=== PATIENT | male | born 1995 | race Two or more races ===

== ENCOUNTER 2025-07-01 11:59 | Emergency (ER) | payer MEDICAID, SELFPAY ==
[2025-07-01 12:23] VITALS: BP 170/105; PULSE 89; RESP 18; TEMP 36.7; O2SAT 98
[2025-07-01 12:25] VITALS: BMI 26.9
--- NOTE | 2025-07-01 12:25 | EKG_ITS ---
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
--- NOTE | 2025-07-01 12:26 | PD.EDRME ---
Rapid Medical Screening Exam E Arrival date/time: 07/01/25 11:59 30-year-old male with a history of pancreatitis, alcoholism presents to the emergency room with a chief complaint of numbness to his bilateral lower extremities and hands x 1 month. Patient states he was drinking heavily last night. I have greeted and performed a focused initial assessment of this patient. A comprehensive ED assessment and evaluation of the patient, analysis of all test results, and completion of the medical decision making process will be conducted by additional ED providers. Chief Complaint: Anxiety Time Seen by Provider: 07/01/25 12:10 Vital signs: Vital Signs Temperature 98.0 F 07/01/25 12:23 Pulse Rate 89 07/01/25 12:23 Respiratory Rate 18 07/01/25 12:23 Blood Pressure 170/105 H 07/01/25 12:23 Pulse Oximetry (%) 98 07/01/25 12:23 Oxygen Delivery Method Room Air 07/01/25 12:23 Vital signs reviewed by provider: Yes
[2025-07-01 13:07] LABS: Basophils # (Auto) 0.1 Thou/mm3 (0.0-0.2); Basophils % (Auto) 1 % (0-2.5); Eosinophils # (Auto) 0.1 Thou/mm3 (0.0-0.5); Eosinophils % (Auto) 2 % (0-10); Hematocrit 48.2 % (41.0-53.0); Hemoglobin 16.9 g/dL (13.5-16.0); Immature Granulocytes Auto 0.03 Thou/mm3 (0.00-0.00); Lymphocytes # (Auto) 2.9 Thou/mm3 (1.0-4.8); Lymphocytes % (Auto) 35 % (10-50); Mean Corpuscular HGB Conc 35.1 g/dl (31.0-37.0); Mean Corpuscular Hemoglobin 30.5 pg (25.0-35.0); Mean Corpuscular Volume 87 fL (80-100); Monocytes # (Auto) 0.4 Thou/mm3 (0.0-0.8); Monocytes % (Auto) 5 % (0-12); Neutrophils # (Auto) 4.7 Thou/mm3 (1.8-7.7); Neutrophils % (Auto) 57 % (37-80); Nucleated Red Blood Cell # 0.00 Thou/mm3 (0.00-0.00); Nucleated Red Blood Cell % 0 /100 WBC (0); Platelet Count 410 Thou/mm3 (140-440); RDW Standard Deviation 40.9 fL (35.1-43.9); Red Blood Count 5.55 Miln/mm3 (4.50-5.90); White Blood Count 8.3 Thou/mm3 (3.8-10.6)
[2025-07-01 13:10] LABS: Collection Type, Urine Clean Catch
[2025-07-01 13:16] LABS: Bilirubin,Urine Negative (Negative); Blood,Urine Negative (Negative); Clarity,Urine Clear (Clear/Hazy); Color,Urine Lt-Yellow (Lt Yel-Yel); Glucose, Urine Negative (Negative); Ketones,Urine Trace (Negative); Leukocyte Esterase,Urine Negative (Negative); Nitrite,Urine Negative (Negative); PH,Urine 6.0 (5.0-7.0); Protein,Urine Negative (Neg - Trace); RBC,Urine < 1 /hpf (0-3); Specific Gravity,Urine 1.017 (1.001-1.035); Squamous Epithelial Cell,Urine < 1 /hpf (0-5); Urobilinogen,Urine Negative mg/dL (0.0-1.0); WBC,Urine 1 /hpf (0-5)
[2025-07-01 13:25] LABS: Amphetamine/Methamp Scrn,U Negative (Negative); Barbiturate Screen,Urine Negative (Negative); Benzodiazepines Screen,Urine Negative (Negative); Benzoylecgonine Screen, Ur Negative (Negative); Fentanyl Screen,Urine Negative (Negative); Opiate Screen,Urine Negative (Negative); THC Screen,Urine Positive (Negative)
[2025-07-01 13:25] LABS: B-Type Natriuretic Peptide < 20 pg/mL (0-100)
[2025-07-01 13:27] LABS: Alanine Aminotransferase 87 U/L (10-49); Albumin, Serum 5.2 gm/dL (3.5-5.0); Albumin/Globulin Ratio 1.9 (1.2-2.2); Alcohol, Blood Medical 75.0 mg/dL (0-10.0); Alkaline Phosphatase 122 U/L (46-116); Anion Gap 13 (7-16); Aspartate Amino Transferase 63 U/L (0-34); BUN/Creatinine Ratio 5 Ratio (12-20); Bilirubin,Total 0.5 mg/dL (0.3-1.2); Blood Urea Nitrogen 6 mg/dL (9-23); Calcium 9.7 mg/dL (8.3-10.6); Calcium (Corrected) 9.7 mg/dL (8.5-10.1); Carbon Dioxide 25.7 mMol/L (20.0-31.0); Chloride 103 mMol/L (98-107); Creatinine (Component) 1.1 mg/dL (0.6-1.3); Estimated Creatinine Clearance 112.1 mL/min (>60); Globulin 2.8 gm/dL (2.3-3.5); Glucose 108 mg/dL (74-106); Lipase 29 U/L (12-53); Magnesium 1.8 mg/dL (1.6-2.6); Osmolality,Calculated 281 (275-295); Potassium 4.2 mMol/L (3.4-5.1); Sodium 142 mMol/L (136-145); Total Protein 8.0 gm/dL (5.7-8.2); Troponin I < 0.020 ng/mL (0.0-0.045); eGFR > 60 See Note
--- NOTE | 2025-07-01 15:07 | PD.EDRME ---
Rapid Medical Screening Exam RME Arrival date/time: 07/01/25 11:59 07/01/25 11:59 30-year-old male with a history of pancreatitis, alcoholism presents to the emergency room with a chief complaint of numbness to his bilateral lower extremities and hands x 1 month. Patient states he was drinking heavily last night. I have greeted and performed a focused initial assessment of this patient. A comprehensive ED assessment and evaluation of the patient, analysis of all test results, and completion of the medical decision making process will be conducted by additional ED providers. Chief Complaint: Anxiety Time Seen by Provider: 07/01/25 12:10 Vital signs: Vital Signs Temperature 98.0 F 07/01/25 12:23 Pulse Rate 89 07/01/25 12:23 Respiratory Rate 18 07/01/25 12:23 Blood Pressure 170/105 H 07/01/25 12:23 Pulse Oximetry (%) 98 07/01/25 12:23 Oxygen Delivery Method Room Air 07/01/25 12:23 RME Narrative: 07/01/25 11:59 30-year-old male with a history of pancreatitis, alcoholism presents to the emergency room with a chief complaint of numbness to his bilateral lower extremities and hands x 1 month. Patient states he was drinking heavily last night. I have greeted and performed a focused initial assessment of this patient. A comprehensive ED assessment and evaluation of the patient, analysis of all test results, and completion of the medical decision making process will be conducted by additional ED providers.
--- NOTE | 2025-07-01 16:03 | PD.EDADULT ---
ED General RME/HPI General Chief complaint: Anxiety Stated complaint: Fingers/toes numb, drank heavy alcohol yesterday Time Seen by Provider: 07/01/25 12:10 Arrival date/time: 07/01/25 11:59 RME / HPI RME / HPI narrative: 07/01/25 11:59 30-year-old male with a history of pancreatitis, alcoholism presents to the emergency room with a chief complaint of numbness to his bilateral lower extremities and hands x 1 month. Patient states he was drinking heavily last night. I have greeted and performed a focused initial assessment of this patient. A comprehensive ED assessment and evaluation of the patient, analysis of all test results, and completion of the medical decision making process will be conducted by additional ED providers. DR. KOEHLER MAIN ED EVALUATION Related Data Previous Rx's ?Medication ?Instructions ?Recorded folic acid 1 mg tablet 1 mg PO QDAY #14 tabs 06/26/23 thiamine HCl (vitamin B1) 100 mg 100 mg PO QDAY #14 tabs 06/26/23 tablet Allergies Allergy/AdvReac Type Severity Reaction Status Date / Time No Known Allergies Allergy Verified 07/01/25 12:03 Course Orders Category Date Time Status EKG (ED ONLY) *Do not use* NOW Care 07/01/25 12:25 Completed EKG (ED Only) Stat Exams 07/01/25 12:25 Draft Alcohol, Blood Medical Stat Lab 07/01/25 12:52 Completed B-Type Natriuretic Peptide Stat Lab 07/01/25 12:52 Completed CBC Stat Lab 07/01/25 12:52 Completed CMP [Comprehensive Metabolic Panel] Stat Lab 07/01/25 12:52 Completed Drug Screen,Urine Stat Lab 07/01/25 13:04 Completed Lipase Stat Lab 07/01/25 12:52 Completed Magnesium Stat Lab 07/01/25 12:52 Completed Troponin I Stat Lab 07/01/25 12:52 Completed UA [Urinalysis] Stat Lab 07/01/25 13:04 Completed Urine Culture Stat Lab 07/01/25 13:04 Received Vital Signs Vital signs: Vital Signs Temperature 98.0 F 07/01/25 12:23 Pulse Rate 89 07/01/25 12:23 Respiratory Rate 18 07/01/25 12:23 Blood Pressure 170/105 H 07/01/25 12:23 Pulse Oximetry (%) 98 07/01/25 12:23 Oxygen Delivery Method Room Air 07/01/25 12:23 Discharge Plan Prescriptions/Referrals Prescriptions/Med Rec: No Action folic acid 1 mg tablet 1 mg PO QDAY Qty: 14 0RF thiamine HCl (vitamin B1) 100 mg tablet 100 mg PO QDAY Qty: 14 0RF Referrals: No Primary/Family,Physician [Primary Care Provider] - In 1 week Patient/Caregiver Discharge Instructions Print Language: Korean
--- NOTE | 2025-07-01 16:11 | PC.NURSE ---
CALLED PT INSIDE AND OUTSIDE TO BE SEEN BY PROVIDER. PT DID NOT ANSWER AT THIS TIME
--- NOTE | 2025-07-01 17:40 | PC.NURSE ---
PT CALLED IN ED LOBBY AND OUTSIDE LOBBY; NO RESPONSE AT THIS TIME
--- NOTE | 2025-07-01 18:09 | PC.NURSE ---
NAx3 [id number] for dispo.
== END 2025-07-01 18:10 | disposition left against medical advice (07) ==
LOC: SERX 12:38
PROVIDERS: Nurse Practitioner Family; Emergency Provider Family Medicine
DX: F41.9 Anxiety disorder, unspecified (principal); R20.0 Anesthesia of skin; F10.20 Alcohol dependence, uncomplicated; Y90.3 Blood alcohol level of 60-79 mg/100 ml; Z87.19 Personal history of other diseases of the digestive system; Z53.29 Procedure and treatment not carried out because of patient's decision for other reasons
CPT/HCPCS: 36415; 80053; 80307; 80320; 81001; 83690; 83735; 83880; 84484; 85025; 87086; 93005; 99283; G0480

== ENCOUNTER 2025-07-02 19:19 | Emergency (ER) | payer MEDICAID, SELFPAY ==
[2025-07-02 19:21] VITALS: BMI 26.9
[2025-07-02 19:59] VITALS: BP 146/84; PULSE 77; RESP 18; TEMP 36.9; O2SAT 96
--- NOTE | 2025-07-02 20:33 | PD.EDADULT ---
ED General RME/HPI General Chief complaint: General Adult/Misc Complain Stated complaint: BILATERAL FEET PROBLEM FOR MONTHS Time Seen by Provider: 07/02/25 20:12 Arrival date/time: 07/02/25 19:19 Related Data Previous Rx's ?Medication ?Instructions ?Recorded folic acid 1 mg tablet 1 mg PO QDAY #14 tabs 06/26/23 thiamine HCl (vitamin B1) 100 mg 100 mg PO QDAY #14 tabs 06/26/23 tablet cyanocobalamin (vitamin B-12) 5,000 mcg PO QDAY #30 caps 07/02/25 5,000 mcg capsule folic acid 1 mg tablet 1 mg PO QDAY #30 tabs 07/02/25 thiamine HCl (vitamin B1) 100 mg 100 mg PO QDAY #30 tabs 07/02/25 tablet Allergies Allergy/AdvReac Type Severity Reaction Status Date / Time No Known Allergies Allergy Verified 07/02/25 19:20 Review of Systems Review of Systems Systems Reviewed: All systems reviewed, normal except as documented Past Medical History Past Medical History NEUROLOGIC: Negative Neurological Disorders, Cerebrovascular Accident, Transient Ischemic Attacks (TIA), Dementia, Alzheimer's Disease, Parkinson's Disease, Brain Tumor, Meningitis, Seizures, Epilepsy, Multiple Sclerosis, Cerebral Palsy, Amyotrophic Lateral Sclerosis (ALS/Geena Gehrig's), Guillain-Rhodes Syndrome, Spina Bifida, Paralysis, Peripheral Neuropathy, Cooley's Palsy, Subdural Hematoma, Migraine, Head Trauma, Spinal Cord Injury or Traumatic Brain Injury CARDIAC: Positive Cardiac Disorders, Angina and Hypertension; Negative Myocardial Infarction, Cardiac Arrhythmia, Atrial Fibrillation, Heart Murmur, Coronary Artery Disease, Atherosclerotic Heart Disease, Peripheral Vascular Disease, Hypercholesterolemia, Aneurysm, Congestive Heart Failure, Congenital Heart Disease, Valvular Heart Disease, Rheumatic Fever, Cardiomyopathy, Edema, Pericarditis, Cellulitis, Deep Vein Thrombosis, Hypotension or Varicose Veins RESPIRATORY: Negative Chronic Obstructive Pulmonary Disease (COPD), Asthma, Bronchitis, Emphysema, Pneumonia, Pulmonary Fibrosis, Cystic Fibrosis, Tuberculosis, Pulmonary Embolism, Pulmonary Edema or Sleep Apnea GASTROINTESTINAL: Positive Gastrointestinal Disorders and Pancreatitis; Negative Hepatitis, Cirrhosis, Celiac Disease, Gall Bladder Disease, Gastrointestinal Bleed, Esophageal Varices, Maldonado's Esophagus, Colitis, Ulcerative Colitis, Diverticulitis, Diverticulosis, Ulcer, Colorectal Cancer, Irritable Bowel, Crohn's Disease, Obstructive Bowel, Hiatal Hernia, Hemorrhoids, Gastroesophageal Reflux Disease or Obesity GENITOURINARY: Negative Genitourinary Disorders, Renal Disease, Kidney Stones, Polycystic Kidney Disease, Neurogenic Bladder, Inguinal Hernia, Dialysis or Prostate Cancer REPRODUCTIVE: Negative Fibroids or Testicular Cancer MUSCULOSKELETAL: Negative Musculoskeletal Disorders, Muscular Dystrophy, Myasthenia Gravis, Marfan's Syndrome, Bone Cancer, Arthritis, Rheumatoid Arthritis, Osteoporosis, Degenerative Disk Disease, Gout, Scoliosis, Carpal Tunnel Syndrome, Fibromyalgia, Fractures, Degenerative Joint Disease, Osteomyelitis or Poliovirus ENT: Negative Cataracts, Glaucoma, Blind, Retinal Detachment, Macular Degeneration, Ear Infection, Deafness, Head Trauma or Eye Prosthesis ENDOCRINE: Negative Endocrine Disorders, Diabetes Mellitus Type 1, Diabetes Mellitus Type 2, Hypoglycemia, [place]'s Syndrome, [place]'s Disease, Hyperthyroidism, Hypothyroidism, Parathyroid Disease, Pituitary Disease, Systemic Lupus Erythematosus, Syndrome of Inappropriate Antidiuretic Hormone (SIADH), Adrenal Disease or Graves' Disease HEMATOLOGIC: Negative Blood Disorders, Anemia, Leukemia, Hemophilia, Thalassemia or Sickle Cell Disease PSYCHO/SOCIAL: Positive Anxiety; Negative Psychiatric Problems, Schizophrenia, Recreational Drug Use, Bipolar Disorder, Depression, Behavior Problems, Self-Mutilation, Attention Deficit Disorder, Attention Deficit Hyperactivity Disorder, Depression, Post Traumatic Stress Disorder or Eating Disorder OTHER HISTORY: Negative Hospitalization, Autoimmune Disease, Down Syndrome, Autism, Developmental Delay, Shingles, Falls, Blood Transfusions, Blood Transfusion Reaction, Anesthesia Reactions, Organ Transplant, Chemotherapy, Radiation Therapy, Hyperbaric Therapy, MRSA, VRSA, Vancomycin-Resistant Enterococci, Human Immunodeficiency Virus (HIV), Chicken Pox, Measles, Mumps, Rubella (Filipino Measles), Pertussis, Clostridium Difficile, Cancer, Colorectal Cancer, Lung Cancer, Ovarian Cancer, Prostate Cancer or Testicular Cancer Family History FAMILY HISTORY: Positive Family Cardiac Disorders and Family Surgery; Negative Family Psychiatric Problems, Family Respiratory Disorders, Family Gastrointestinal Problems, Family Cancer or Family Anesthesia Reaction Surgical History SURGICAL: Negative Cardiac Surgery, Open Heart Surgery, Coronary Artery Bypass Graft, Valve Replacement, Vascular Surgery, Coronary Stent, Cardiac Catheterization, Pacemaker, Angiogram, Auto Implanted Cardiovert Defib, Endocrine Surgery, Thyroidectomy, Ear Surgery, Tympanostomy Tube, Eye Surgery, Nose Surgery, Oral Surgery, Tonsillectomy, Adenoidectomy, Cochlear Implant, Corneal Transplant, Throat Surgery, Abdominal Surgery, Tracheostomy, Gastric Bypass Surgery, Gastrostomy, Bowel Surgery, Nephrectomy, Transurethral Resection, Joint Replacement, Amputation, Open Reduction Internal Fixation, Arthroscopy, Neurologic Surgery, Brain Shunt, Mastectomy, Lumpectomy, Hysterectomy, Tubal Ligation, Section, Vasectomy or Organ Transplant Social History SMOKING STATUS: Current some day smoker SECOND HAND EXPOSURE: Yes SUBSTANCE USE: marijuana ED Exam Narrative Physical exam: A&O, afebrile and non-toxic appearing 30-year-old male, no acute distress. Lung sounds are clear, RRR. Equal scleroscope tester strength, equal pedal push/pull. Cranial nerves grossly intact. Sensory is intact to all digits of his bilateral hands and feet. No ataxia noted during exam or with walking up and down the segura. Moves all extremities well. Course Course Course Narrative: Reviewed labs from earlier visit/yesterday. Only abnormality is mild transaminitis with an elevated alcohol level. Patient has previously been prescribed thiamine and folic acid but has not taken these medications in 2 years. Quality Measures none Vital Signs Vital signs: Vital Signs Temperature 98.4 F 07/02/25 19:59 Pulse Rate 77 07/02/25 19:59 Respiratory Rate 18 07/02/25 19:59 Blood Pressure 146/84 H 07/02/25 19:59 Pulse Oximetry (%) 96 07/02/25 19:59 Oxygen Delivery Method Room Air 07/02/25 19:59 Discharge Plan Plan Patient Disposition: HOME (Self Care) Discharge Disposition comment: Stable and improved Prescriptions/Referrals Prescriptions/Med Rec: New thiamine HCl (vitamin B1) 100 mg tablet 100 mg PO QDAY Qty: 30 0RF folic acid 1 mg tablet 1 mg PO QDAY Qty: 30 0RF cyanocobalamin (vitamin B-12) 5,000 mcg capsule 5,000 mcg PO QDAY Qty: 30 0RF No Action folic acid 1 mg tablet 1 mg PO QDAY Qty: 14 0RF thiamine HCl (vitamin B1) 100 mg tablet 100 mg PO QDAY Qty: 14 0RF Problem List Clinical Impression: Peripheral neuropathy Patient/Caregiver Discharge Instructions Education Materials: What Is Peripheral Neuropathy, Treating Peripheral Neuropathy Additional Instructions: Take these vitamins as prescribed to see if they help with your neuropathy of your fingers and toes. You need to establish with a primary care physician for additional workup to determine the exact cause of your neuropathy. It is recommended you do not drink alcohol. Follow-up with your primary care physician in 24 to 48 hours. Return to the ED for any new or worsening symptoms. Print Language: Nauruan Stand Alone Forms: Susy Award Info., Patient Portal Info Letter PA/[employer]OFESSIONAL [employer]LEY[employer]ER Supervising Physician PA/PROFESSIONAL [employer]LEYB[employer]ER Supervising Physician: Dr. Hyde
== END 2025-07-02 21:10 | disposition home or self-care (01) ==
LOC: SERX 20:41
PROVIDERS: Emergency Provider Emergency Medicine
DX: G62.9 Polyneuropathy, unspecified (principal); R74.01 Elevation of levels of liver transaminase levels
CPT/HCPCS: 99282